=== PATIENT | male | born 1960 | race Caucasian/White ===

== ENCOUNTER 2019-06-07 10:42 | Emergency (ER) | payer MEDICAID ==
[~2019-06-07] VITALS: Ht 175.3 cm; Wt 76.2 kg
[2019-06-07 12:01] VITALS: BP 133/82
== END 2019-06-07 13:16 | disposition home or self-care (01) ==
LOC: ER 10:42
DX: H10.32 Unspecified acute conjunctivitis, left eye (principal); Z88.0 Allergy status to penicillin